=== PATIENT | male | born 1945 | race African-American/Black ===

== ENCOUNTER 2016-11-27 09:34 | Emergency (ER) | payer BC ==
[~2016-11-27 09:34] MED LIST: ACET500CAP PO; ADVICOR PO; AMARYL4 PO; ASAB PO; AVANDAMET1 TA4 PO; BYETTA10 SC; CIP5 PO; COREG25 PO; DIOVAN HC1 PO; EXFORGE HC4 PO; NAP375 PO; NIACOR500 MG PO; TRADJENTA5 MG PO; Z300 PO; ZOCOR20 PO
[2016-11-27 10:32] LABS: BASOPHILS 0.5 %; BASOPHILS ABSOLUTE 0.03 10/3/uL (0.0-0.16); EOSINOPHILS ABSOLUTE 0.06 10/3/uL (0.0-0.53); HEMATOCRIT 33.1 % (40.0-51.0); HEMOGLOBIN 11.4 g/dL (13.6-17.8); IMMATURE GRANULOCYTES 0.5 %; IMMATURE GRANULOCYTES ABSOLUTE 0.03 10/3/uL (0.0-0.11); LYMPHOCYTES 18.1 %; LYMPHOCYTES ABSOLUTE 1.06 10/3/uL (0.67-4.30); MEAN CORPUS HGB CONC 34.4 g/dL (32.0-36.0); MEAN CORPUSCULAR HEMOGLOB 32.2 pg (26.0-34.0); MEAN PLATELET VOLUME 9.3 fL (9.2-13.0); MONOCYTES 9.7 %; MONOCYTES ABSOLUTE 0.57 10/3/uL (0.21-1.20); NEUTROPHILS 70.2 %; NEUTROPHILS ABSOLUTE 4.11 10/3/uL (2.02-8.40); PLATELET COUNT 136 10/3/uL (150-400); RBC DISTRIBUTION WIDTH 13.9 % (12.0-16.0); RED CELL COUNT 3.54 10/6/uL (4.7-6.1)
[2016-11-27 10:33] LABS: ER CBC TAT 0 Hrs 13 Mins; MANUAL DIFF NO %; MEAN CORPUSCULAR VOLUME 93.5 fL (80-100); WHITE BLOOD CELLS 5.9 10/3/uL (4.5-10.5)
[2016-11-27 10:36] LABS: INTERNATIONAL NORMAL RATI 1.1 UNITS (-); PARTIAL THROMBO TIME 29.8 SEC (22.5-37.2); PROTIME (NOT ORD) 14.1 SEC (12.0-14.5)
[2016-11-27 10:44] LABS: CHEST PAIN PROFILE TAT 0 Hrs 24 Mins; GFR AFRICAN AMERICAN 9 ML/MIN (>=60); GFR NON AFRICAN AMERICAN 8 ML/MIN (>=60); GLUCOSE, SERUM 103 MG/DL (60-99); TROPONIN I <0.02 NG/ML (<0.05)
[2016-11-27 10:46] LABS: BUN (BLOOD UREA NITROGEN) 42 MG/DL (6-23); CHLORIDE, SERUM 100 MMOL/L (96-112); CO2 (CARBON DIOXIDE) 30 MMOL/L (24-34); CREATININE 6.62 MG/DL (0.70-1.30); POTASSIUM, SERUM 4.3 MMOL/L (3.5-5.3); SODIUM, SERUM 138 MMOL/L (135-148)
[2016-11-27] MEDS ORDERED: REG5 PO (13:50)
[2016-11-27] MEDS ORDERED: Z100 PO (13:51)
[2016-11-27] MEDS ORDERED: RENVELA800 MG PO (13:51)
[2016-11-27] MEDS ORDERED: SENSIPAR30 M1 PO (13:51)
[2016-11-27] MEDS ORDERED: PERCOCET 10/3251 TAB PO (13:52)
[2016-11-27] MEDS ORDERED: SLO-NIACIN500 MG PO (13:52)
[2016-11-27] MEDS ORDERED: ZOCOR20 PO (13:52)
[2016-11-27] MEDS ORDERED: ASAB PO (13:53)
[2016-11-27] MEDS ORDERED: SODBICAR10 PO (13:53)
[2016-11-27] MEDS ORDERED: VITAMIN D2000 UNIT PO (13:53)
[2016-11-27] MEDS ORDERED: MOVANTIK12.5 MG PO (13:55)
[2016-11-27] MEDS ORDERED: ALLEGRA180 PO (13:56)
== END 2016-11-27 17:20 | disposition home or self-care (01) ==
LOC: ER 09:34
PROVIDERS: Emergency Medicine
DX: R00.1 Bradycardia, unspecified (principal); I12.9 Hypertensive chronic kidney disease with stage 1 through stage 4 chronic kidney disease, or unspecified chronic kidney disease; N18.9 Chronic kidney disease, unspecified; I25.2 Old myocardial infarction; E11.9 Type 2 diabetes mellitus without complications; Z85.46 Personal history of malignant neoplasm of prostate; Z88.8 Allergy status to other drugs, medicaments and biological substances; Z79.82 Long term (current) use of aspirin; Z79.899 Other long term (current) drug therapy
CPT/HCPCS: 71010; 80048; 83735; 83880; 84484; 85025; 85610; 85730; 93005; 99285